=== PATIENT | female | born 1970 | race Caucasian/White ===

== ENCOUNTER 2023-06-07 01:13 | Emergency (ER) | payer OTHER, SELFPAY ==
--- NOTE | ~2023-06-07 | CT_ITS ---
Non-contrast Head CT History: Head injury Technique: Axial non-contrast imaging of the brain was performed. Dose reduction technique was used on this scan by utilizing automated exposure control and iterative reconstruction technique. The dose -length product (DLP) was 605.33 mGy-cm. Findings: There is a 4.5 x 3.6 cm subacute parenchymal hematoma in the posterior medial left temporal lobe/left occipital lobe, just medial to the atrium of the left lateral ventricle. There is a small subacute left frontal convexity subdural hematoma, measuring up to 1.3 cm in axial thickness. There i s rightward midline shift of 9 mm. Ventricles demonstrate mild diffuse dilatation. The calvarium appe ars normal. The visualized paranasal sinuses and mastoid air cells are clear. Impression: 4.5 x 3.6 centers subacute parenchymal hematoma in the posterior medial left temporal lobe/left occip ital lobe. Subacute left convexity subdural hematoma, measuring 1.3 cm in thickness. Message/formation to collections results in rightward midline shift of 9 mm. Mild diffuse ventricular system dilatation, which could reflect an element of mild reactive hydroceph alus. Reviewed, dictated and finalized at location [facility]. Impression: 4.5 x 3.6 centers subacute parenchymal hematoma in the posterior medial left te mporal lobe/left occipital lobe. Subacute left convexity subdural hematoma, measuring 1.3 cm in thickness. Message/formation to collections results in rightward midline shift of 9 mm. Mild diffuse ventricular system dilatation, which could reflect an element of m ild reactive hydrocephalus.
[2023-06-07 01:16] VITALS: BP 143/94; PULSE 108; RESP 20; TEMP 36.4; O2SAT 97
--- NOTE | 2023-06-07 01:27 | ED.FALL ---
HPI - Fall General Chief Complaint: Fall Stated Complaint: fall Time Seen by Provider: 06/07/23 01:17 History of Present Illness HPI Narrative: 52-year-old female present to the emergency department for evaluation after having a [facility]. 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 patient had been treated at [facility] and was transferred from [facility] today to the care facility. [facility] had been at the [facility] for approximately 2 hours when she fell from the bed and struck her head. Patient is unsure if she had any loss of consciousness. Patient is at her normal baseline since the aneurysm. Patient denies any pain or injury. Related Data Allergies Allergy/AdvReac Type Severity Reaction Status Date / Time lorazepam Allergy Unknown Verified 06/06/23 21:21 Review of Systems Review of Systems: All systems reviewed & are unremarkable except as noted in HPI and below Exam Narrative: APPEARANCE: Well appearing, no pain, no distress, well-nourished. HEAD: normocephalic, atraumatic. EYES: PERRLA/EOMI, conjunctivae clear. NOSE: Normal no drainage EARS:TMS clear with good light reflex. THROAT: Pharynx clear, no exudate. NECK: Supple. No adenopathy, no masses. RESPIRATORY: Airway patent, respirations nonlabored. Clear to auscultation bilaterally, no rales, rhonchi, wheezing. CARDIOVASCULAR: Regular rate and rhythm without murmurs rubs or gallops. ABDOMINAL: Soft, nontender, nondistended, normal bowel sounds MUSCULOSKELETAL: Moves all extremities. Strength/ROM intact, No edema, No calf tenderness. NEURO: Alert. Cranial nerves II through XII intact. Good gait. Good coordination SKIN: Warm, dry. Normal Color Course Course Emergency Course: 52-year-old female present to the emergency department after having a ground level fall. Patient does have some midline shift and some blood in the ventricle. I discussed the case with Dr. Lowe at [facility] with neurosurgery, and she felt that the images were unchanged compared to the recent images. states the patient is at her new normal baseline. Patient and family are updated on the results of the imaging and the plan to wait the CT read from our radiologist. Patient and family were updated on the results the imaging and they are encouraged to have close follow-up with her physicians. All questions and concerns were addressed Vital Signs Vital signs: Vital Signs Temperature 97.5 F L 06/07/23 01:16 Pulse Rate 108 H 06/07/23 01:16 Respiratory Rate 20 06/07/23 01:16 Blood Pressure 143/94 H 06/07/23 01:16 Pulse Oximetry 97 06/07/23 01:16 Oxygen Delivery Room Air 06/07/23 01:16 Temperature 97.5 F L 06/07/23 01:16 Pulse Rate 115 H 06/07/23 03:01 Respiratory Rate 15 06/07/23 03:01 Blood Pressure 133/84 06/07/23 03:01 Pulse Oximetry 99 06/07/23 03:01 Oxygen Delivery Room Air 06/07/23 01:16 MDM - Fall Imaging Data Radiologist's impression: Overnight read CT head impression: Chronic left-sided subdural hematoma measuring 12 mm thickness. 7 mm [id number] midline shift. Subacute hemorrhage in the left temporal horn measuring 2.4 x 3.0 cm. Chronic small-vessel ischemic disease. Discharge Plan Discharge Clinical Impression: Head injury Patient Disposition: NH Retirement/Asst Living Condition: Stable Instructions: Antibiotic Form, Head Injury (ED) Additional Instructions: Have close follow-up with your primary care physician and surgeons. If you have any worsening symptoms please call or return to the emergency department. Follow-up/Referrals: Sae,MD Mark [Primary Care Provider] -
--- NOTE | 2023-06-07 01:36 | PC.NURSE ---
at bedside states that A&Ox1 is the new baseline for the patient.
[2023-06-07 03:01] VITALS: BP 133/84; PULSE 115; RESP 15; O2SAT 99
== END 2023-06-07 04:27 ==
PROVIDERS: Emergency Provider Emergency Medicine; PCP Internal Medicine Infectious Disease
DX: S09.90XA Unspecified injury of head, initial encounter (principal); I62.02 Nontraumatic subacute subdural hemorrhage; I61.1 Nontraumatic intracerebral hemorrhage in hemisphere, cortical; W06.XXXA Fall from bed, initial encounter
CPT/HCPCS: 70450; 99284